=== PATIENT | female | born 1975 | race Two or more races ===

== ENCOUNTER → 2017-09-26 07:27 | Outpatient (CLI) | payer OTHER ==
[~2017-09-26 07:27] MED LIST: SYNTHROID100 MCG PO
== END | disposition home or self-care (01) ==
LOC: LAB 07:27
DX: E03.9 Hypothyroidism, unspecified (principal)

== ENCOUNTER 2018-05-08 12:19 | Outpatient (CLI) | payer OTHER | END 2018-05-08 15:00 | disposition home or self-care (01) | LOC: RAD 12:19 | DX: M25.562 Pain in left knee (principal); M77.32 Calcaneal spur, left foot ==

== ENCOUNTER 2018-05-10 07:29 | Outpatient (CLI) | payer OTHER | END 2018-05-10 08:19 | disposition home or self-care (01) | LOC: LAB 07:29 | DX: R53.1 Weakness (principal); E03.8 Other specified hypothyroidism ==

== ENCOUNTER 2018-11-20 07:18 | Outpatient (CLI) | payer OTHER | END 2018-11-20 15:00 | disposition home or self-care (01) | LOC: LAB 07:18 | DX: E03.8 Other specified hypothyroidism (principal); E78.49 Other hyperlipidemia; Z00.00 Encounter for general adult medical examination without abnormal findings; R42 Dizziness and giddiness ==

== ENCOUNTER 2019-03-25 14:31 | Outpatient (CLI) | payer OTHER | END 2019-03-26 12:20 | disposition home or self-care (01) | LOC: LAB 14:31 | DX: I10 Essential (primary) hypertension (principal); D64.89 Other specified anemias; M06.4 Inflammatory polyarthropathy ==

== ENCOUNTER 2019-04-17 11:42 | Outpatient (CLI) | payer OTHER | END 2019-04-17 11:43 | disposition home or self-care (01) | LOC: LAB 11:42 | DX: N30.00 Acute cystitis without hematuria (principal) ==

== ENCOUNTER → 2019-05-08 | Outpatient (CLI) | payer OTHER | END | disposition home or self-care (01) | LOC: RAD 10:57 | DX: M25.562 Pain in left knee (principal) ==

== ENCOUNTER 2019-05-27 07:18 | Outpatient (CLI) | payer OTHER | END 2019-05-27 07:23 | disposition home or self-care (01) | LOC: LAB 07:18 | DX: E03.8 Other specified hypothyroidism (principal); Z00.00 Encounter for general adult medical examination without abnormal findings ==

== ENCOUNTER 2019-06-27 11:29 | Outpatient (CLI) | payer OTHER | END 2019-06-27 11:34 | disposition home or self-care (01) | LOC: EDBD 11:29 → MAMO-SONO 11:29 | DX: Z12.31 Encounter for screening mammogram for malignant neoplasm of breast (principal) ==

== ENCOUNTER 2019-07-16 07:08 | Outpatient (CLI) | payer OTHER | END 2019-07-16 16:14 | disposition home or self-care (01) | LOC: EDBD 07:08 → LAB 07:08 | DX: E78.49 Other hyperlipidemia (principal); R10.2 Pelvic and perineal pain; N39.0 Urinary tract infection, site not specified; N39.3 Stress incontinence (female) (male); E55.9 Vitamin D deficiency, unspecified; Z00.00 Encounter for general adult medical examination without abnormal findings; E03.8 Other specified hypothyroidism ==

== ENCOUNTER → 2020-06-29 08:45 | Outpatient (CLI) | payer OTHER | END | disposition home or self-care (01) | LOC: LAB 08:45 | PROVIDERS: ATTEND Anesthesiology | DX: E03.8 Other specified hypothyroidism (principal) ==

== ENCOUNTER 2020-08-03 09:28 | Emergency (ER) | payer OTHER ==
[~2020-08-03] VITALS: Ht 165.1 cm; Wt 77.1 kg
[2020-08-03] MEDS ORDERED: CYCLOBENZAPRINE10 MG PO (12:32)
[2020-08-03] MEDS ORDERED: PERCOCET 5-3251 EACH PO (12:32)
[2020-08-03] MEDS ORDERED: ORPHENADRINE C100 MG PO (12:32)
[2020-08-03] MEDS ORDERED: KETO10TA2 PO (12:32)
== END 2020-08-03 12:40 | disposition home or self-care (01) ==
LOC: ER 09:28
DX: M54.5 Low back pain (principal)

== ENCOUNTER 2020-08-24 07:35 | Outpatient (CLI) | payer OTHER ==
[~2020-08-24 07:35] MED LIST changes: +CYCLOBENZAPRINE10 MG PO; +KETO10TA2 PO; +ORPHENADRINE C100 MG PO; +PERCOCET 5-3251 EACH PO
== END 2020-08-24 07:36 | disposition home or self-care (01) ==
LOC: LAB 07:35
PROVIDERS: ATTEND Obstetrics & Gynecology
DX: N65.1 Disproportion of reconstructed breast (principal); E28.39 Other primary ovarian failure; E04.1 Nontoxic single thyroid nodule; E55.9 Vitamin D deficiency, unspecified; E78.00 Pure hypercholesterolemia, unspecified

== ENCOUNTER 2020-08-24 13:28 | Outpatient (CLI) | payer OTHER | END 2020-08-24 13:33 | disposition home or self-care (01) | LOC: MAMO-SONO 13:28 | PROVIDERS: ATTEND Obstetrics & Gynecology | DX: N60.11 Diffuse cystic mastopathy of right breast (principal); N60.12 Diffuse cystic mastopathy of left breast; Z12.31 Encounter for screening mammogram for malignant neoplasm of breast ==

== ENCOUNTER → 2020-12-09 | Outpatient (CLI) | payer OTHER | END | disposition home or self-care (01) | LOC: LAB 09:19 | PROVIDERS: ATTEND Emergency Medicine Pediatric Emergency Medicine | DX: Z03.818 Encounter for observation for suspected exposure to other biological agents ruled out (principal) ==

== ENCOUNTER 2021-05-03 06:00 | Day surgery (SDC) | payer OTHER ==
[2021-05-03] MEDS ORDERED: SYNTHROID100 MCG PO (08:37)
== END 2021-05-03 09:55 | disposition home or self-care (01) ==
LOC: AMB-ENDOS 06:00
PROVIDERS: ATTEND Surgery
DX: K62.89 Other specified diseases of anus and rectum (principal); K64.8 Other hemorrhoids

== ENCOUNTER 2021-05-09 12:51 | Outpatient (CLI) | payer OTHER | END 2021-05-09 12:54 | disposition home or self-care (01) | LOC: LAB 12:51 | PROVIDERS: ATTEND Urology | DX: N30.00 Acute cystitis without hematuria (principal); B96.29 Other Escherichia coli [E. coli] as the cause of diseases classified elsewhere ==

== ENCOUNTER 2021-08-24 10:01 | Outpatient (CLI) | payer OTHER | END 2021-08-24 10:11 | disposition home or self-care (01) | LOC: LAB 10:01 | PROVIDERS: ATTEND Obstetrics & Gynecology | DX: D64.9 Anemia, unspecified (principal); N39.0 Urinary tract infection, site not specified; E78.00 Pure hypercholesterolemia, unspecified; E13.9 Other specified diabetes mellitus without complications; E03.9 Hypothyroidism, unspecified ==